=== PATIENT | male | born 2000 | race Asian ===

== ENCOUNTER 2018-01-16 11:55 | Emergency (ER) | payer OTHER ==
[~2018-01-16 11:55] MED LIST: IBUPROFEN600 M1 PO; ZOFRAN ODT4 M1 PO
[2018-01-16 11:59] VITALS: BP 155/90
--- NOTE | 2018-01-16 12:58 | ED GENERAL ADULT ---
History of Present Illness General Chief Complaint: Shoulder Injury Stated Complaint: LT SHOULDER PAIN S/P FALL X 2 DAYS AGO Source: patient Exam Limitations: no limitations Vital Signs & Intake/Output Vital Signs & Intake/Output Vital Signs Date Time Temp Pulse Resp B/P B/P Pulse O2 O2 Flow FiO2 Mean Ox Delivery Rate 01/16 1159 98.2 100 18 155/90 99 Room Air Allergies Coded Allergies: NO KNOWN ALLERGIES (08/24/15) Reconcile Medications Ibuprofen 400 MG TABLET 1 TAB PO TID PRN PAIN Triage Note: 17M REPORTS LEFT SHOULDER PAIN WITH SLIGHT LIMITATION IN MOVEMENT WITH ARM RAISE ABOVE HEAD. NO DEFORMITY OBSERVED. PT FELL ON IT TWO DAYS AGO, DENIES HEADSTRIKE. ALSO FELL ON ELBOW, DENIES PAIN TO PALPATION OF ELBOW OR FOREARM/WRIST. FULL ROM. Triage Nurses Notes Reviewed? yes Onset: Abrupt Duration: hour(s): Timing: recent history HPI: 01/16/18 1:18 PM 17-year-old male presents to the emergency department for left shoulder injury. He says 2 days ago he fell onto his left elbow and it jammed up into his shoulder. He has ongoing pain to the left shoulder. He does have free range of motion and no deformity however it is painful on range of motion. He has pain and tenderness to the anterior and superior shoulder. Negative Yergason test. Past medical history is otherwise negative. Onset of the symptoms were abrupt. Duration of symptoms 2 days. Severity symptoms severe. No associated injuries. Past History Travel History Traveled to [place] past 21 day No Medical History Any Pertinent Medical History? see below for history Neurological: NONE EENT: NONE Cardiovascular: NONE Respiratory: NONE Gastrointestinal: NONE Hepatic: NONE Renal: NONE Musculoskeletal: NONE Psychiatric: NONE Endocrine: NONE Blood Disorders: NONE Cancer(s): NONE CLIENT RELATIONS SPECIALIST/Reproductive: NONE Surgical History Surgical History: knee surgery Psychosocial History What is your primary language Lithuanian Tobacco Use: Never used Family History Family History, If Any: MOTHER FH: HTN (hypertension) FATHER FH: HTN (hypertension) Hx Contributory? No Review of Systems Review of Systems Constitutional: Denies: fever. EENTM: Denies: visual changes. Respiratory: Denies: short of breath. Cardiovascular: Denies: chest pain. GI: Denies: abdominal pain. Genitourinary: Reports: no symptoms. Musculoskeletal: Reports: see HPI. Skin: Denies: rash. Neurological/Psychological: Denies: headache. Hematologic/Endocrine: Reports: see HPI. Physical Exam Physical Exam General Appearance: well developed/nourished, alert, awake, anxious, mild distress Head: atraumatic, normal appearance Eyes: Bilateral: normal appearance, PERRL, EOMI. Ears, Nose, Throat: normal pharynx, normal ENT inspection Neck: normal inspection, supple, full range of motion Respiratory: normal breath sounds, chest non-tender, no respiratory distress Cardiovascular: regular rate/rhythm Peripheral Pulses: 4+ radial (R), 4+ radial (L) Gastrointestinal: soft, non-tender Back: decreased range of motion Extremities: tenderness, TENDERNESS AND DECREASED RANGE OF MOTION TO THE LEFT SHOULDER Neurologic/Psych: no motor/sensory deficits, awake, alert, oriented x 3 Skin: intact, normal color, warm/dry Core Measures ACS in differential dx? No CVA/TIA Diagnosis: No Sepsis Present: No Sepsis Focused Exam Completed? No Progress Differential Diagnoses I considered the following diagnoses in my evaluation of the patient: [Fracture, dislocation, other associated injuries, neuropathy] Plan of Care: Orders Procedure Date/time Status Durable Medical Equipment 01/16 1322 Active Initial ED EKG: none Departure Departure Disposition: HOME OR SELF CARE Condition: Stable Clinical Impression Primary Impression: Sprain of left shoulder Referrals: Sunita Flores APRN (PCP/Family) Departure Forms: Customer Survey General Discharge Information Prescriptions: Current Visit Scripts Ibuprofen 1 TAB PO TID PRN PAIN #10 TAB Comments The patient was put in a left shoulder immobilizer. Ibuprofen given for pain. He will follow-up with orthopedics next week. PATIENT: EMIR MARTINEZ PRESENT AGE: 17 PATIENT ACCOUNT NO: [id number] : 98 LOCATION: [facility] ORDERING PHYSICIAN: Antione Gallardo DO SERVICE DATE: 01/16/18-9464 EXAM TYPE: RAD - XRY-SHOULDER COMPLETE-LEFT EXAMINATION: XR SHOULDER, LEFT CLINICAL INFORMATION: Pain and limited range of motion status post fall. Evaluate for fracture or subluxation. COMPARISON: No relevant prior imaging. TECHNIQUE: Four views of the left shoulder. FINDINGS: There is no acute fracture or dislocation. The glenohumeral joint space and acromioclavicular joint space are intact. The acromiohumeral interval is maintained. Soft tissues are unremarkable. Visualized portions of the left upper hemithorax reveal no abnormal finding. IMPRESSION: Normal left shoulder radiographs. No evidence of acute fracture or dislocation. DICTATED BY: Neno Young MD DATE/TIME DICTATED:01/16/181302 BOILING TUB OPERATOR:VICKI DATE/TIME TRANSCRIBED:01/16/181302 CONFIDENTIAL, DO NOT COPY WITHOUT APPROPRIATE AUTHORIZATION. <Electronically signed in Other Vendor System> SIGNED BY: Neno Young MD 01/16 1308 Critical Care Note Critical Care Note Critical Care Time: non-applicable
--- NOTE | 2018-01-16 13:08 | RADIOLOGY REPORT ---
EXAMINATION: XR SHOULDER, LEFT CLINICAL INFORMATION: Pain and limited range of motion status post fall. Evaluate for fracture or subluxation. COMPARISON: No relevant prior imaging. TECHNIQUE: Four views of the left shoulder. FINDINGS: There is no acute fracture or dislocation. The glenohumeral joint space and acromioclavicular joint space are intact. The acromiohumeral interval is maintained. Soft tissues are unremarkable. Visualized portions of the left upper hemithorax reveal no abnormal finding. IMPRESSION: Normal left shoulder radiographs. No evidence of acute fracture or dislocation.
[2018-01-16] MEDS ORDERED: IBUPROFEN400 M1 PO (13:21)
== END 2018-01-16 13:54 ==
LOC: ERH 11:55
DX: S43.402A Unspecified sprain of left shoulder joint, initial encounter (principal); W19.XXXA Unspecified fall, initial encounter; Y92.9 Unspecified place or not applicable; Y93.9 Activity, unspecified
CPT/HCPCS: 73030-LT